=== PATIENT | female | born 1970 | race Caucasian/White ===

== ENCOUNTER 2018-12-21 20:29 | Inpatient (IN) ==
[2018-12-21] MEDS ORDERED: Haloperidol Lactate 5 MG/ML VIAL IM PRN (20:43)
[2018-12-21] MEDS ORDERED: MOM Conc 10 ML UD.LIQ PO PRN (20:43)
[2018-12-21] MEDS ORDERED: *HR* LORazepam 1 MG TABLET PO PRN (20:43)
[2018-12-21] MEDS ORDERED: *HR* LORazepam 2 MG/ML VIAL IM PRN (20:43)
[2018-12-21] MEDS ORDERED: Mag Hydrox/Al Hydrox/Simeth 30 ML UDC PO PRN (20:43)
[2018-12-21] MEDS: hydrOXYzine pamoate 25 MG CAPSULE PO PRN (21:48)
[2018-12-21] MEDS: Acetaminophen 325 MG TABLET PO PRN (21:48)
[2018-12-21] MEDS: traZODone 50 MG TABLET PO PRN (21:48)
[2018-12-22] MEDS: Acetaminophen 325 MG TABLET PO PRN (09:58)
[2018-12-22] MEDS: Lisinopril 20 MG TABLET PO SCH (10:38)
[2018-12-22] MEDS: traZODone 50 MG TABLET PO PRN (20:21)
[2018-12-22] MEDS: hydrOXYzine pamoate 25 MG CAPSULE PO PRN (20:21)
[2018-12-23] MEDS: Lisinopril 20 MG TABLET PO SCH (08:35)
[2018-12-23 09:19] VITALS: BP 113/80
== END 2018-12-23 12:07 | disposition home or self-care (01) | DRG 751 ==
LOC: 1ANU 20:29
PROVIDERS: ADMIT Psychiatry & Neurology Psychiatry; ATTEND Psychiatry & Neurology Psychiatry